=== PATIENT | male | born 1955 | race Caucasian/White ===

== ENCOUNTER 2019-08-28 13:45 | Inpatient (IN) | payer OTHER, SELFPAY ==
[2019-08-28] VITALS (10 sets, daily range): BP systolic 121–157; BP diastolic 70–85; PULSE 80–119; RESP 17–30; TEMP 36.2–38.3; O2SAT 86–97; BMI 36.4
--- NOTE | ~2019-08-28 | XR_ITS ---
XR hip LT 2V w AP pelvis DATE: 08/29/2019 15:47 INDICATION: Left hip pain. No injury. TECHNIQUE: AP pelvis. AP and lateral views of left hip. COMPARISON: None FINDINGS: No pelvic fracture or bone destruction is detected. The pubic symphysis and sacroiliac join ts are intact. Hip joint spaces are relatively preserved. No fracture, dislocation, avascular necrosi s or bone destruction of the left hip. IMPRESSION: No pelvic or left hip fracture or dislocation rather significant abnormality Reviewed, dictated and finalized at location B. IMPRESSION: No pelvic or left hip fracture or dislocation rather significant ab normality
--- NOTE | ~2019-08-28 | XR_ITS ---
EXAMINATION: XR chest 1V portable DATE: 08/28/2019 14:38 INDICATION: Shortness of breath. TECHNIQUE: A single frontal view of the chest was obtained. COMPARISON: None. FINDINGS: The chest demonstrates clear lungs without pneumonia, pleural effusion, or pneumothorax. Th e heart size is normal. There are prominent paracardial fat pads. IMPRESSION: 1. No acute cardiopulmonary disease. Reviewed, dictated and finalized at location A.
--- NOTE | ~2019-08-28 | XR_ITS ---
EXAMINATION: XR chest 2V EXAM DATE: 08/30/2019 19:04 INDICATION: Cough. Bronchitis. TECHNIQUE: Frontal and lateral projections of the chest obtained and reviewed. Comparison is made to prior examination from 08/28/2019. FINDINGS: Minimal right basilar linear opacity most consistent with atelectasis. Right midlung zone g ranuloma. The lungs are otherwise clear. There are no pleural effusions. The cardiomediastinal silh ouette is within normal limits. There is no pneumothorax suspected. The bones and soft tissues are unremarkable. IMPRESSION: Minimal right basilar linear opacity likely subsegmental atelectasis. Reviewed, dictated and finalized at location A. IMPRESSION: Minimal right basilar linear opacity likely subsegmental atelectasi s.
--- NOTE | 2019-08-28 13:47 | ECG_ITS ---
Measurements Intervals [place] Rate: 119 P: 80 LA: 128 QRS: 95 QRSD: 83 T: 59 QT: 297 QTc: 418 Interpretive Statements SINUS TACHYCARDIA FREQUENT ATRIAL PREMATURE COMPLEXES RIGHT AXIS DEVIATION BASELINE ARTIFACT- V4-V6 ABNORMAL ECG Electronically Signed On 08-28-2019 14:51:16 CDT by Andres Caro D.O.
--- NOTE | 2019-08-28 14:15 | ED.SOB ---
HPI - SOB/Dyspnea General Source: patient Mode of arrival: ambulatory Limitations: no limitations History of Present Illness HPI Narrative: A 64 y/o male pt with a PMHx of COPD, presents to the ED, with c/o worsening SOB since Thursday (2 days ago). Pt notes having wheezes, fatigue, sore throat and nausea, but denies vomiting or fever. He states his SOB worsens with movement. Pt states that he is on O2 x 2L via NC at all times. He notes having a smoking hx and states he smokes an estimate of a 1/2 pack of cigarettes daily. Pt notes taking Aspirin, but denies taking Tylenol. MD elicited complaint: shortness of breath Pertinent past history: COPD Onset (ago): day(s) (2) Timing: progressively worsening Exacerbating factors: movement Known history of: COPD Associated symptoms: wheezing and other (sore throat, fatigue, nausea) Treatment prior to arrival: aspirin Related Data Home Medications Medication Instructions Recorded Confirmed albuterol sulfate 2 puff INHALATION TID PRN 08/28/19 08/28/19 aspirin 325 mg PO DAILY 08/28/19 08/28/19 beclomethasone dipropionate [Qvar 2 inh INHALATION DAILY 08/28/19 08/28/19 RediHaler] furosemide 40 mg PO DAILY 08/28/19 08/28/19 potassium chloride 20 meq PO DAILY 08/28/19 08/28/19 Allergies Allergy/AdvReac Type Severity Reaction Status Date / Time No Known Allergies Allergy Verified 08/28/19 17:36 Review of Systems Review of Systems: All systems reviewed & are unremarkable except as noted in HPI and below Constitutional: Constitutional: Reports fatigue and Denies fever(s) ENT: Reports sore throat Respiratory: Respiratory: Reports dyspnea and Reports wheezing Gastrointestinal: Gastrointestinal: Reports nausea and Denies vomiting PMF Past Medical History Medical History (Updated 08/28/19 @ 20:08 by Je Rushing DO) CAD (coronary artery disease) COPD (chronic obstructive pulmonary disease) Medical history unknown Polycythemia vera Surgical History Surgical History (Updated 08/28/19 @ 19:59 by Kin Singh MD) History of coronary artery stent placement Surgical history unknown Family History Family History Other No problems noted. Mother Cardiovascular disease Father Stomach cancer Sibling Renal failure Diabetes mellitus Ovarian cancer Social History Social History Smoking packs per day: 0.5 Smoking cigarettes per day: 10.0 Smoking status: Current every day smoker Alcohol intake: current Drinks per week: 1 Substance use: never Gender identity (if verbalized by the patient): Male Spiritual care concerns: No Agree to blood products: Yes Exam Narrative: Exam Narrative: APPEARANCE: No acute distress, nontoxic, resting in bed EYES: EOMI HEENT: Normocephalic, atraumatic, OMM RESPIRATORY: No respiratory distress decreased breath sounds in the bilateral lower lung ryan, no wheezing, no rhonchi CARDIOVASCULAR: Regular rate and rhythm without murmurs rubs or gallops. ABDOMINAL: Soft, nontender, nondistended, no rebound or guarding MUSCULOSKELETAl: Moves all extremities. No clubbing, cyanosis or edema. NEURO: Awake and alert x 3. Following commands, speech normal, no focal deficits SKIN:: Warm, dry. No rashes lesions or abrasions PSYCHIATRIC: Normal affect/mood, Course Consultations Consultation #1: Discussed case with Antonia Wallace NP for the hospitalist, Dr. Pérez. Accepts admission and recommends starting pt on Levaquin and Solu-Medrol.. At this time will avoid nebulizers. We discussed the patient's current PCO2 and with patient's serum bicarb being 39 as well as the patient currently being awake and alert x3 it is felt that the patient does not require BiPAP at this time will continue on current nasal cannula is trying to limit BiPAP at this current time secondary to current Covid pandemic Discussed with patient and
[2019-08-28 14:23] LABS: Basophils Absolute Auto 0.1 K/mm3 (0.0-0.1); Basophils Percent Auto 0.5 % (0.2-1.2); Eosinophils Absolute Auto 0.1 K/mm3 (0-0.3); Eosinophils Percent Auto 0.6 % (0-4.4); Hematocrit 53.8 % (42.0-52.0); Hemoglobin 16.7 g/dL (14.0-18.0); Immature Granulocyte Absolute 0.05 K/mm3 (0.00-0.031); Immature Granulocyte Percent A 0.5 % (0-0.5); Lymphocytes Absolute Auto 1.75 K/mm3 (0.9-3.2); Mean Corpuscular Hemoglobin 30.5 pg (26-34); Mean Corpuscular Volume 98.2 fl (80-100); Mean Platelet Volume 10.4 fl (7.4-10.4); Monocytes Absolute Auto 0.9 K/mm3 (0.1-0.6); Monocytes Percent Auto 9.2 % (2.6-8.5); Neutrophils Absolute Auto 6.9 K/mm3 (1.3-6.7); Neutrophils Percent Auto 71.2 % (45.5-73.1); Platelet Count Result 242 k/mm3 (150-375); Red Blood Count 5.48 M/mm3 (4.6-6.20); Red Cell Distribution Width 12.9 % (11.5-14.5); White Blood Count 9.7 K/mm3 (4.5-10.0)
[2019-08-28 14:30] LABS: Alveolar/Arterial O2 Gradient 43.9 mmHg; Base Excess ABG 7.5 mEq/l (+/-2.0); Fractional Inspired Oxygen 28 %; HCO3 ABG 37.4 mEq/l (22.0-26.0); Oxygen Content ABG 21.3 %vol (16.0-22.0); Oxygen Saturation ABG 90.6 % (95.0-100.0); Oxyhemoglobin 90.3 % THb (90.0-100.0); PO2 ABG 66.5 mmHg (80.0-100.0); PO2 FiO2 Ratio Arterial Blood 2.38 %; Total Hemoglobin 16.8 g/dL (12.0-18.0); pH ABG 7.312 (7.350-7.450)
[2019-08-28 14:31] LABS: Device NASAL CANNULA; Modified Allen's Test Pass; PCO2 ABG 75.6 mmHg (35.0-45.0); Site Drawn RIGHT RADIAL
[2019-08-28 14:32] LABS: INR 1.1; Prothrombin Time 13.4 Seconds (11.1-14.7)
[2019-08-28 14:33] LABS: Partial Thromboplastin Time 27.4 SECONDS (22.3-36.8)
[2019-08-28 14:34] LABS: Lactic Acid Reflex 1.5 mmol/L (0.7-2.1)
[2019-08-28 14:34] LABS: Blood Urea Nitrogen 12 mg/dL (9-20); Calcium 8.9 mg/dL (8.4-10.2); Carbon Dioxide 39 mmol/L (22-30); Chloride 95 mmol/L (98-107); Estimated CRCL calculation 100 ml/min; Estimated Glomerular Filt Rate > 60; Glucose 169 mg/dL (75-110); Potassium 4.3 mmol/L (3.4-5.0); Sodium 138 mmol/L (137-145)
[2019-08-28] MEDS: SODIUM CHLORIDE 0.9% IV 1,000 ML 999 ML IV CONT (14:47)
[2019-08-28 14:54] LABS: Alanine Aminotransferase 23 U/L (4-50); Albumin Level 4.2 g/dL (3.5-5.1); Alkaline Phosphatase 112 U/L (38-126); Aspartate Amino Transferase 21 U/L (17-59); Bilirubin,Total 0.7 mg/dL (0.2-1.3)
[2019-08-28 14:55] LABS: NT Pro B Type Natriuretic Pept 37 PG/ML (5-100); Troponin I < 0.012 ng/mL (0.000-0.034)
[2019-08-28] MEDS: methylPREDNISolone SOD SUCC 125 MG VIAL IV PUSH (15:47)
--- NOTE | 2019-08-28 16:58 | PC.NURSE ---
This patient, Ramo Dunaway, was admitted to 2 Medical Room 251-. Patient/family oriented to hospital policies and general routines including ID bracelet, bed and alarms, visiting hours, pain management, procedures, bathroom and other care routines, personal items, smoking policy, room service/diet, and visiting hours. Valuables list has been completed. Information on how to activate the Rapid Response Team has been discussed. Patient/Family are encouraged to report perceived risks to care and to ask questions if they do not understand what they are told or what they should do.
[2019-08-28] MEDS: SODIUM CHLORIDE 0.9% IV 1,000 ML 100 ML IV CONT (18:04)
--- NOTE | 2019-08-28 19:54 | PM.IMHP ---
H&P: HPI History of Present Illness Chief complaint: Shortness of breath Narrative: This is a 64 year old obese male with known COPD, polycythemia vera, CAD+ and chronic tobacco user who presented to the hospital with a complaint of severe shortness of breath for the past 3 days, productive cough, and generalized weakness. He relates that he has had ongoing worsening shortness of breath for the past 3 weeks but now he is severely short of breath even with minimal exertion. Associated symptoms include wheezing. He denies any fever or chills although he did have a fever today in the ER. He also denies any chest pain, palpitations, sore throat, hyposmia, worsening LE swelling, abdominal pain, nausea, vomiting, diarrhea, or rectal bleeding. The patient is known to smoke between 14 - 2 ppd and continues to smoke. He is known to be on 2L of home oxygen at all times and tells me he often bumps it up to 4L. He has been taking his home medications as prescribed. His last course of antibiotics was 1 year ago. The patient was evaluated in the ER today and found to have hypercapnic respiratory failure w/ a pH of 7.312 and a pCO2 of 75.6. The patient was admitted to the medical floor for continued care and given IV antibiotics and bronchodilators. Review of Systems Review of Systems: All systems reviewed & are unremarkable except as noted in HPI and below PMFSH Past Medical History Medical History CAD (coronary artery disease) COPD (chronic obstructive pulmonary disease) Medical history unknown Polycythemia vera Surgical History Surgical History History of coronary artery stent placement Surgical history unknown Family History Family History Other No problems noted. Mother Cardiovascular disease Father Stomach cancer Sibling Renal failure Diabetes mellitus Ovarian cancer Social History Social History Smoking packs per day: 0.5 Smoking cigarettes per day: 10.0 Smoking status: Current every day smoker Alcohol intake: current Drinks per week: 1 Substance use: never Gender identity (if verbalized by the patient): Male Spiritual care concerns: No Agree to blood products: Yes Meds Home Medications and Allergies Home Medications Medication Instructions Recorded Confirmed Type albuterol sulfate 2 puff INHALATION TID PRN 08/28/19 08/28/19 History aspirin 325 mg PO DAILY 08/28/19 08/28/19 History beclomethasone dipropionate [Qvar 2 inh INHALATION DAILY 08/28/19 08/28/19 History RediHaler] furosemide 40 mg PO DAILY 08/28/19 08/28/19 History potassium chloride 20 meq PO DAILY 08/28/19 08/28/19 History Allergies Allergy/AdvReac Type Severity Reaction Status Date / Time No Known Allergies Allergy Verified 08/28/19 17:36 Vital Signs Vital Signs - 24 hr 08/28/19 14:05 08/28/19 14:10 08/28/19 15:19 Temperature 38.3 C H Pulse Rate 119 H 116 H 99 Respiratory Rate 24 H 30 H 26 H Blood Pressure 157/85 H 157/85 H 121/77 Pulse Oximetry 86 L 92 94 08/28/19 16:30 08/28/19 18:41 08/28/19 19:26 Temperature 36.3 C L Pulse Rate 95 94 Respiratory Rate 17 20 Blood Pressure 128/84 Pulse Oximetry 97 93 94 Exam Const: General: cooperative, alert and awake; No well groomed Nutritional Appearance: obese morbidly obese Orientation/consciousness: patient oriented x3 HENMT: Head: normal to inspection General nose exam: Normal external nose present Face and sinus: normal facial exam Mouth: Yes Normal oral and palatal mucosa present and Yes oropharynx normal Eyes: Pupils: Equal, round and reactive pupils present EOM: EOMs intact bilaterally Neck: Neck: supple and no JVD Thyroid: thyroid normal Lymphatic: lymphadenopathy not noted Resp: Effort & Inspection: p
[2019-08-28 20:55] LABS: Alveolar/Arterial O2 Gradient 55.9 mmHg; Fractional Inspired Oxygen 33 %; Oxygen Content ABG 21.4 %vol (16.0-22.0); Oxygen Saturation ABG 93.6 % (95.0-100.0); Oxyhemoglobin 92.8 % THb (90.0-100.0); PO2 ABG 81.3 mmHg (80.0-100.0); PO2 FiO2 Ratio Arterial Blood 2.46 %; Total Hemoglobin 16.4 g/dL (12.0-18.0)
[2019-08-28 20:58] LABS: Modified Allen's Test Pass; Site Drawn RIGHT RADIAL
[2019-08-28 20:59] LABS: Device NASAL CANNULA
[2019-08-28] MEDS: methylPREDNISolone SOD SUCC 125 MG VIAL 60 MG IV PUSH (22:08)
--- NOTE | 2019-08-28 22:37 | PC.NURSE ---
This patient, Ramo Dunaway, was received from [[id number] ] on 08/28/19 at 2200. Personal belongings list checked and signed. Patient/family oriented to unit policies and routines
[2019-08-28 23:45] LABS: Alveolar/Arterial O2 Gradient 12.2 mmHg; Base Excess ABG 6.1 mEq/l (+/-2.0); Fractional Inspired Oxygen 28 %; HCO3 ABG 37.4 mEq/l (22.0-26.0); Oxygen Content ABG 21.8 %vol (16.0-22.0); Oxygen Saturation ABG 94.3 % (95.0-100.0); PO2 FiO2 Ratio Arterial Blood 3.04 %; Total Hemoglobin 16.5 g/dL (12.0-18.0)
[2019-08-28 23:50] LABS: pH ABG 7.252 (7.350-7.450)
[2019-08-28 23:51] LABS: Device NASAL CANNULA; Modified Allen's Test Pass; PCO2 ABG 86.8 mmHg (35.0-45.0); Site Drawn LEFT RADIAL
[2019-08-29] VITALS (15 sets, daily range): BP systolic 116–155; BP diastolic 70–97; PULSE 79–105; RESP 18–24; TEMP 35.9–36.7; O2SAT 88–97
[2019-08-29] MEDS: SODIUM CHLORIDE 0.9% IV 1,000 ML 100 ML IV CONT ×3 (04:16→20:05)
[2019-08-29] MEDS: methylPREDNISolone SOD SUCC 125 MG VIAL 60 MG IV PUSH ×2 (04:17→08:08)
[2019-08-29 04:55] LABS: Basophils Percent Auto 0.2 % (0.2-1.2); Hematocrit 53.4 % (42.0-52.0); Hemoglobin 16.3 g/dL (14.0-18.0); Immature Granulocyte Percent A 1.2 % (0-0.5); Lymphocytes Absolute Auto 0.98 K/mm3 (0.9-3.2); Lymphocytes Percent Auto 11.4 % (18.3-44.2); Mean Corpuscular HGB Conc 30.5 g/dl (32-36); Mean Corpuscular Hemoglobin 30.6 pg (26-34); Mean Corpuscular Volume 100.2 fl (80-100); Mean Platelet Volume 10.3 fl (7.4-10.4); Monocytes Absolute Auto 0.3 K/mm3 (0.1-0.6); Monocytes Percent Auto 2.9 % (2.6-8.5); Neutrophils Absolute Auto 7.3 K/mm3 (1.3-6.7); Neutrophils Percent Auto 84.3 % (45.5-73.1); Platelet Count Result 243 k/mm3 (150-375); Red Blood Count 5.33 M/mm3 (4.6-6.20); Red Cell Distribution Width 12.8 % (11.5-14.5); White Blood Count 8.6 K/mm3 (4.5-10.0)
[2019-08-29 05:15] LABS: Blood Urea Nitrogen 12 mg/dL (9-20); Calcium 8.9 mg/dL (8.4-10.2); Carbon Dioxide > 40 mmol/L (22-30); Chloride 97 mmol/L (98-107); Estimated CRCL calculation 98 ml/min; Estimated Glomerular Filt Rate > 60; Glucose 275 mg/dL (75-110); Magnesium 2.3 mg/dL (1.6-2.3); Potassium 4.5 mmol/L (3.4-5.0); Sodium 138 mmol/L (137-145)
[2019-08-29] MEDS: ASPIRIN 325 MG TABLET PO (08:08)
[2019-08-29] MEDS: FUROSEMIDE 40 MG TABLET PO (08:08)
[2019-08-29] MEDS: POTASSIUM CHLORIDE 20 MEQ TABLET.ER PO (08:08)
[2019-08-29] MEDS: DOXYCYCLINE HYCLATE 100 MG TABLET PO ×2 (08:08→20:05)
--- NOTE | 2019-08-29 13:50 | PM.IMPN ---
Subjective Date/time seen: 08/29/19 13:50 Interval history: 64 year old obese male with known COPD, polycythemia vera, CAD+ and chronic tobacco user who presented to the hospital with a complaint of severe shortness of breath for the past 3 days, productive cough, and generalized weakness. Pt was on bipap last night presently on oxygen, mild cough, sob and wheeze. Pt has complaints of left hip pain unsure if he has a old fracture of his left hip. Pt gets pain when he raises from the chair. Review of Systems Review of Systems: All systems reviewed & are unremarkable except as noted in HPI and below Respiratory: Respiratory: Reports chest congestion, Reports cough, Reports dyspnea and Reports wheezing Musculoskeletal: Comments: left hip pain Exam Const: General: cooperative, alert, awake and in distress; No well groomed Nutritional Appearance: obese morbidly obese Orientation/consciousness: patient oriented x3 Other: On oxygen Resp: Auscultation: rhonchi and wheezes expiratory wheezes Cardio: Rate: tachycardic Rhythm: regular rhythm Heart sounds: no murmurs GI: Auscultation: normal bowel sounds Neuro: General: patient oriented x3 Cranial nerves: Yes CN's II-XII intact bilaterally and Yes Equal, round and reactive pupils present Speech: normal speech Motor exam (neuro): 5/5 motor strength present throughout Sensory Exam: normal sensation Extrem: General: normal to inspection Other: Left hip pain near greater trochanter Objective Data Vital Signs Vital Signs: Vital Signs - 24 hr 08/28/19 14:05 08/28/19 14:10 08/28/19 15:19 Temperature 38.3 C H Pulse Rate 119 H 116 H 99 Respiratory Rate 24 H 30 H 26 H Blood Pressure 157/85 H 157/85 H 121/77 Pulse Oximetry 86 L 92 94 08/28/19 16:30 08/28/19 18:41 08/28/19 19:26 Temperature 36.3 C L Pulse Rate 95 94 Respiratory Rate 17 20 Blood Pressure 128/84 Pulse Oximetry 97 93 94 08/28/19 21:05 08/28/19 21:10 08/28/19 22:00 Temperature 36.2 C L 36.6 C Pulse Rate 104 H 92 92 Respiratory Rate 20 22 H 20 Blood Pressure 146/81 H 129/71 Pulse Oximetry 90 92 93 08/28/19 23:09 08/29/19 00:03 08/29/19 00:59 Temperature 36.6 C Pulse Rate 80 90 79 Respiratory Rate 20 20 20 Blood Pressure 130/70 Pulse Oximetry 92 92 88 L 08/29/19 02:00 08/29/19 04:00 08/29/19 05:31 Temperature 36.7 C Pulse Rate 93 94 92 Respiratory Rate 20 Blood Pressure 116/76 Pulse Oximetry 94 08/29/19 07:56 08/29/19 08:00 08/29/19 09:47 Temperature 36.4 C L Pulse Rate 84 85 97 Respiratory Rate 22 H Blood Pressure 136/82 Pulse Oximetry 91 08/29/19 11:14 08/29/19 12:00 Temperature 36.7 C Pulse Rate 97 94 Respiratory Rate 22 H 20 Blood Pressure 155/95 H Pulse Oximetry 93 97 Intake/Output Intake/Output: Intake & Output 08/26/19 08/27/19 08/28/19 08/29/19 23:59 23:59 23:59 23:59 Intake Total 1490 2360 Output Total 500 700 Balance 990 1660 Meds/Results Medications: Active Medications Generic Name Dose Route Start Last Admin Trade Name Freq PRN Reason Stop Dose Admin Acetaminophen 650 mg 08/28/19 19:52 Tylenol Tablet PO Q4H PRN Mild Pain (1-3) or Fever Aspirin 325 mg 08/29/19 09:00 08/29/19 08:08 Aspirin PO 325 mg DAILY DONNY Administration Doxycycline Hyclate 100 mg 08/29/19 09:00 08/29/19 08:08 Vibramycin Tab PO 100 mg Q12HR DONNY Administration Furosemide 40 mg 08/29/19 09:00 08/29/19 08:08 Lasix Tablet PO 40 mg DAILY DONNY Administration Sodium Chloride 1,000 mls @ 100 mls/hr 08/28/19 16:05 08/29/19 11:28 Normal Saline Iv IV CONT 100 mls/hr .Q10H DONNY Administration Methylprednisolone Sodium Succinate 60 mg 08/28/19 22:00 08/29/19 08:08 Solu-Medrol IV PUSH 60 mg Q6H DONNY Administration Potassium Chloride 20 meq 08/29/19 09:00 08/29/19 08:08 Kcl Tablet PO 20 meq DAILY DONNY Administration Radiology Results: ITS Impres
[2019-08-29 15:36] LABS: Hemoglobin A1C 7.5 % (<5.7)
[2019-08-29] MEDS: methylPREDNISolone SOD SUCC 40 MG VIAL IV PUSH ×2 (17:01→23:57)
--- NOTE | 2019-08-29 18:30 | PC.NURSE ---
Transferred to [facility], report given to NEVILLE Calderon. Patient moved at 1810.
[2019-08-29] MEDS: ACETAMINOPHEN 325 MG TABLET 650 MG PO (18:47)
[2019-08-30 05:31] LABS: Hematocrit 50.7 % (42.0-52.0); Hemoglobin 15.9 g/dL (14.0-18.0); Mean Corpuscular HGB Conc 31.4 g/dl (32-36); Mean Corpuscular Hemoglobin 30.3 pg (26-34); Mean Corpuscular Volume 96.8 fl (80-100); Platelet Count Result 267 k/mm3 (150-375); Red Blood Count 5.24 M/mm3 (4.6-6.20); Red Cell Distribution Width 12.5 % (11.5-14.5); White Blood Count 14.4 K/mm3 (4.5-10.0)
[2019-08-30 06:16] VITALS: BP 133/85; PULSE 84; RESP 16; TEMP 36.3; O2SAT 94
[2019-08-30 06:16] LABS: Blood Urea Nitrogen 15 mg/dL (9-20); Calcium 8.7 mg/dL (8.4-10.2); Carbon Dioxide 36 mmol/L (22-30); Chloride 97 mmol/L (98-107); Estimated CRCL calculation 128 ml/min; Estimated Glomerular Filt Rate > 60; Glucose 277 mg/dL (75-110); Potassium 4.7 mmol/L (3.4-5.0); Sodium 138 mmol/L (137-145)
[2019-08-30] MEDS: methylPREDNISolone SOD SUCC 40 MG VIAL IV PUSH ×4 (06:29→23:56)
[2019-08-30] MEDS: SODIUM CHLORIDE 0.9% IV 1,000 ML 100 ML IV CONT (06:30)
[2019-08-30] MEDS: IBUPROFEN 400 MG TABLET PO (06:52)
[2019-08-30] MEDS: ASPIRIN 325 MG TABLET PO (08:54)
[2019-08-30] MEDS: POTASSIUM CHLORIDE 20 MEQ TABLET.ER PO (08:54)
[2019-08-30] MEDS: DOXYCYCLINE HYCLATE 100 MG TABLET PO ×2 (08:54→20:03)
[2019-08-30] MEDS: FUROSEMIDE 40 MG TABLET PO (08:54)
[2019-08-30] MEDS: ALBUTEROL SULFATE (*SP) AEROSOL 1 PUFF 2 PUFF INHALATION ×4 (09:30→19:39)
[2019-08-30 14:00] VITALS: BP 105/52; PULSE 86; RESP 20; TEMP 36.8; O2SAT 98
--- NOTE | 2019-08-30 16:10 | PM.IMPN ---
Progress Note: A&P Assessment and Plan (1) Sepsis: Qualifiers: Acute respiratory failure type: with hypercapnia Sepsis acute organ dysfunction status: with acute organ dysfunction Sepsis type: sepsis due to unspecified organism Severe sepsis acute organ dysfunction type: acute respiratory failure Severe sepsis shock status: without septic shock Qualified Code(s): A41.9 - Sepsis, unspecified organism; R65.20 - Severe sepsis without septic shock; J96.02 - Acute respiratory failure with hypercapnia Code(s): A41.9 - Sepsis, unspecified organism Status: Acute Assessment and Plan: Present on admission with fever and tachycardia. Probably related to the acute bronchitis. Sx better. Continue to monitor. (2) Acute hypercapnic respiratory failure: Code(s): J96.02 - Acute respiratory failure with hypercapnia Status: Acute Assessment and Plan: Patietn with hypercapnia on admission treated with BiPAP. Did not wear BiPAP last night per patient. Encouraged compliance. Has CPAP at home but may need BiPAP at home. Repeat ABG in the morning. (3) COPD exacerbation: Code(s): J44.1 - Chronic obstructive pulmonary disease with (acute) exacerbation Status: Acute Assessment and Plan: Still wheezing. BCx NGTD. Down to 2L NC. Continue bronchodilators, abx and steroid therapy. (4) Acute bronchitis: Qualifiers: Bronchitis organism: unspecified organism Qualified Code(s): J20.9 - Acute bronchitis, unspecified Code(s): J20.9 - Acute bronchitis, unspecified Status: Acute Assessment and Plan: Patient with fever and productive cough. Fever resolved. WBC elevated today but related to the steroids. CXR clear. Repeat CXR. Continue doxycycline. (5) Polycythemia vera: Code(s): D45 - Polycythemia vera Status: Chronic Assessment and Plan: Stable. Hgb 16. (6) CAD (coronary artery disease): Qualifiers: Associated angina: without angina Coronary Disease-Associated Artery/Lesion type: [place] artery [place] vs. transplanted heart: [place] heart Qualified Code(s): I25.10 - Atherosclerotic heart disease of [place] coronary artery without angina pectoris Code(s): I25.10 - Atherosclerotic heart disease of [place] coronary artery without angina pectoris Status: Chronic Assessment and Plan: Stable. Pedal edema noted. On Lasix at home. Monitor for chest pain. Continue ASA therapy. Check Echo. (7) Tobacco dependence: Code(s): F17.200 - Nicotine dependence, unspecified, uncomplicated Status: Chronic Assessment and Plan: Patient has been counseled on the benefits of smoking cessation. Subjective Date/time seen: 08/30/19 16:10 Interval history: 64yo male with known COPD, polycythemia vera, CAD and chronic tobacco use here for COPD exacerbation. Assuming care. Chart reviewed. Patient did not wear the BiPAP last night. Does have CPAP at home. He also is on chronic oxygen at home. Feels much better today. He denies shortness of breath. Still with some dyspnea on exertion walking to the bathroom. No chest pain. No nausea or vomiting. No diarrhea. still with productive cough. Sputum is greenish color. No hemoptysis. Patient has had pedal edema developed over the past year. Exam Narrative: Exam Narrative: AF 133/85 84 Gen - NARD sitting up in a chair Chest -diffuse end expiratory wheezes throughout. Normal respiratory rate. No conversational dyspnea. CV - RRR S1/S2 Abd - Soft, NT/ND, Positive BS Ext -trace pedal edema. Psych - Nml mood and affect Skin -dry scaly skin the bilateral lower extremities. Objective Data Vital Signs Vital Signs: Vital Signs - 24 hr 08/29/19 18:50 08/29/19 21:30 08/30/19 06:16 Temperature 97.5 F L 96.7 F L 97.3 F L Pulse Rate 92 88 84 Respiratory Rate 20 18 16 Blood Pressure 134/70 133/97 H 133/85 Pulse
[2019-08-30 17:12] LABS: Glucose Point of Care 406 (65-105)
[2019-08-30] MEDS: INSULIN ASPART (*BKC) 100 UNITS/ML SUB-Q (17:14)
[2019-08-30] MEDS: EUCERIN CREAM 120 GM JAR 1 APPLIC TOPICAL (18:40)
[2019-08-30 19:43] VITALS: PULSE 79; RESP 18; O2SAT 95
[2019-08-30] MEDS: FAMOTIDINE 20 MG TABLET PO (20:03)
[2019-08-30 20:52] LABS: Glucose Point of Care 345 (65-105)
[2019-08-30] MEDS: INSULIN GLARGINE (*BKC) 100 UNITS/ML 10 UNITS SUB-Q (20:56)
[2019-08-30 22:17] VITALS: BP 151/78; PULSE 94; RESP 18; TEMP 36.7; O2SAT 94
--- NOTE | 2019-08-31 | ECHO_ITS ---
Patient Info Name: Ramo Dunaway Age: 64 years : 1955 Gender: Male Ht: 68 in Wt: 240 lbs BSA: 2.33 m2 HR: 82 bpm BP: 145 / 92 mmHg Heart Rhythm: Sinus Rhythm Technical Quality: Good Exam Date: 08/31/2019 9:20 AM Exam Location: [facility] Pulmonary Patient Status: Inpatient Admit Date: 08/30/2019 Staff Ordering Physician: Yuniel Duff MD Bartender Manager: Kp Pedro RDCS Attending Provider: Yuniel Duff MD Exam Type: CA echo doppler color flow Study Info Indications R60.0 - Localized edema Complete two-dimensional, color flow and Doppler transthoracic echocardiogram is performed. Strain analysis performed. History/Risk Factors COPD exacerbation; pedal edema, SOB, DM, sepsis, CAD. Summary 1. Normal global left ventricular systolic function with no focal wall motion abnormalities. Measured ejection fraction 58%, visually 60-65%. Normal diastolic function. Normal size and thickness. 2. Borderline right ventricular enlargement. 3. Mild left atrial enlargement. 4. Mild mitral regurgitation. 5. Mild pulmonary hypertension, RVSP 49 mmHg. 6. Dilated inferior vena cava with decreased respiratory collapse consistent with elevated right-sided pressures. 7. Normal sinus rhythm. Left Ventricle Left ventricular chamber dimension is normal. Left ventricular systolic function is normal, estimated at 60-65%. There is no increased left ventricular wall thickness. Left ventricular septal wall motion is normal. The left ventricular diastolic function is normal. Global longitudinal strain is normal at 19 %. Right Ventricle Right ventricular chamber dimension is mildly enlarged. Right ventricular systolic function is normal. Left Atria Left atrial chamber dimension is normal. Right Atria Right atrial chamber dimension is normal. Aortic Valve The aortic valve is trileaflet. There is no aortic valve sclerosis. There is no aortic valve stenosis. There is no aortic valve regurgitation. Pulmonic Valve The pulmonic valve is normal. There is no pulmonic valve stenosis. There is no pulmonic regurgitation. Mitral Valve The mitral valve has normal leaflets. There is no mitral valve stenosis. There is mild mitral valve regurgitation. Tricuspid Valve The tricuspid valve leaflets are normal. There is no significant tricuspid valve stenosis. There is trace tricuspid valve regurgitation. Moderate pulmonary hypertension, estimated pulmonary arterial systolic pressure is 49 mmHg. Pericardium/Pleural The pericardium appears normal. There is no pericardial effusion. Inferior Vena Cava Dilated inferior vena cava with <50% collapse upon inspiration consistent with Empty right atrial pressure, 10 mmHg. Aorta The aortic root size at the sinus of Valsalva is normal. The prox ascending aorta size is normal. Left Ventricular Outflow Tract Name Value Normal LVOT 2D LVOT Diameter 1.9 cm LVOT Doppler LVOT Peak Gradient 5 mmHg LVOT Mean Gradient 3 mmHg LVOT VTI 23 cm
[2019-08-31 05:52] VITALS: BP 145/92; PULSE 68; RESP 16; TEMP 35.8; O2SAT 92
[2019-08-31] MEDS: methylPREDNISolone SOD SUCC 40 MG VIAL IV PUSH (06:15)
[2019-08-31] MEDS: INSULIN ASPART (*BKC) 100 UNITS/ML SUB-Q (07:32)
[2019-08-31 08:21] LABS: Glucose Point of Care 282 (65-105)
[2019-08-31] MEDS: FAMOTIDINE 20 MG TABLET PO (08:24)
[2019-08-31] MEDS: ASPIRIN 325 MG TABLET PO (08:24)
[2019-08-31] MEDS: FUROSEMIDE 40 MG TABLET PO (08:24)
[2019-08-31] MEDS: DOXYCYCLINE HYCLATE 100 MG TABLET PO (08:24)
[2019-08-31 08:25] LABS: Alveolar/Arterial O2 Gradient 48.5 mmHg; Base Excess ABG 7.9 mEq/l (+/-2.0); Fractional Inspired Oxygen 28 %; Oxygen Saturation ABG 91.8 % (95.0-100.0); Oxyhemoglobin 92.2 % THb (90.0-100.0); PO2 ABG 68.1 mmHg (80.0-100.0); PO2 FiO2 Ratio Arterial Blood 2.43 %; Total Hemoglobin 16.2 g/dL (12.0-18.0); pH ABG 7.338 (7.350-7.450)
[2019-08-31] MEDS: EUCERIN CREAM 120 GM JAR 1 APPLIC TOPICAL (08:25)
[2019-08-31 08:28] LABS: Device NON-REBREATHER MASK; Modified Allen's Test Pass; PCO2 ABG 70.4 mmHg (35.0-45.0); Site Drawn RIGHT RADIAL
--- NOTE | 2019-08-31 08:33 | PCDIET ---
K 4.7 TODAY HELD AM DOSE. DR SNYDER AWARE
[2019-08-31 09:17] VITALS: O2SAT 92
--- NOTE | 2019-08-31 10:12 | PM.DS ---
DS: Diagnosis Admitting Diagnosis Admitting Diagnosis: Acute respiratory failure with hypercapnia Discharge Diagnosis (1) Sepsis: Qualifiers: Acute respiratory failure type: with hypercapnia Sepsis acute organ dysfunction status: with acute organ dysfunction Sepsis type: sepsis due to unspecified organism Severe sepsis acute organ dysfunction type: acute respiratory failure Severe sepsis shock status: without septic shock Qualified Code(s): A41.9 - Sepsis, unspecified organism; R65.20 - Severe sepsis without septic shock; J96.02 - Acute respiratory failure with hypercapnia Code(s): A41.9 - Sepsis, unspecified organism Status: Acute Assessment and Plan: Present on admission with fever and tachycardia. Probably related to the acute bronchitis. Sx better. (2) Acute hypercapnic respiratory failure: Code(s): J96.02 - Acute respiratory failure with hypercapnia Status: Acute Assessment and Plan: Patient with hypercapnia on admission treated with BiPAP. Patietn had clinical improvement. He has not been wearing the BiPAP at night. Encouraged compliance. ABG today showing pH 7.34, PCO2 70 and PO2 [address] Arias's office called and spoke with staff about ordereing a repeat sleep study. (3) COPD exacerbation: Code(s): J44.1 - Chronic obstructive pulmonary disease with (acute) exacerbation Status: Acute Assessment and Plan: Wheezing improved and patient states he feels back to baseline. BCx NGTD. He was treated with bronchodilators, abx and steroid therapy. Down to 2L NC which is his baseline. (4) Acute bronchitis: Qualifiers: Bronchitis organism: unspecified organism Qualified Code(s): J20.9 - Acute bronchitis, unspecified Code(s): J20.9 - Acute bronchitis, unspecified Status: Acute Assessment and Plan: Patient with fever and productive cough. Fever resolved. WBC normal on admission but became elevated felt related to the steroids. CXR clear on admission with repeat CXR with right base atelectasis. He was treated with doxycycline. Will repeat CXR in 1 month since he is a smoker. (5) EDDI (obstructive sleep apnea): Code(s): G47.33 - Obstructive sleep apnea (adult) (pediatric) Status: Acute Assessment and Plan: Not listed but suspect patient with EDDI. He wears CPAP at home. ABG improved but still with elevated PCO2 which appears to be chronic. Patient has not been wearing his BiPAP here and compliance was strongly encouraged. Talked with Resp Therapist. Patient would need a overnight apnea link to see if he qualifies for BiPAP or repeat sleep study as outpatient. Will plan for repeat outpatient sleep study that will need to be ordered by the PCP. Patient informed. Also called Dr Hutchison's office and left message with staff to order the repeat sleep study. (6) Chronic respiratory failure: Qualifiers: Respiratory failure complication: hypoxia and hypercapnia Qualified Code(s): J96.11 - Chronic respiratory failure with hypoxia; J96.12 - Chronic respiratory failure with hypercapnia Code(s): J96.10 - Chronic respiratory failure, unspecified whether with hypoxia or hypercapnia Status: Acute Assessment and Plan: As above. Patient wears 2 L O2 nasal cannula chronically and CPAP at night. (7) Polycythemia vera: Code(s): D45 - Polycythemia vera Status: Chronic Assessment and Plan: Stable. Hgb remained in the 16 range. (8) CAD (coronary artery disease): Qualifiers: Associated angina: without angina Coronary Disease-Associated Artery/Lesion type: cheesh-na artery [place] vs. transplanted heart: cheesh-na heart Qualified Code(s): I25.10 - Atherosclerotic heart disease of cheesh-na coronary artery without angina pectoris Code(s): I25.10 - Atherosclerotic heart disease of cheesh-na coronary artery without angina pectoris
--- NOTE | 2019-08-31 11:39 | PC.NURSE ---
DR SNYDER NOTIFIED OF GLUCOSE 428, NEW ORDERS RECEIVED.
[2019-08-31 11:46] LABS: Glucose Point of Care 428 (65-105)
[2019-08-31] MEDS: INSULIN ASPART (*BKC) 100 UNITS/ML 10 UNITS SUB-Q (11:48)
[2019-08-31] MEDS: predniSONE 20 MG TABLET 40 MG PO (11:50)
[2019-08-31] MEDS: ALBUTEROL SULFATE (*SP) AEROSOL 1 PUFF 2 PUFF INHALATION ×2 (12:30→16:15)
[2019-08-31 13:54] LABS: Glucose Point of Care 437 (65-105)
[2019-08-31 14:00] VITALS: BP 134/83; PULSE 80; RESP 17; TEMP 36.7; O2SAT 94
--- NOTE | 2019-08-31 14:01 | PC.NURSE ---
glucose 437, Dr Duff notified new orders received.
[2019-08-31] MEDS: INSULIN ASPART (*BKC) 100 UNITS/ML 6 UNITS SUB-Q (14:09)
[2019-08-31 16:20] LABS: Glucose Point of Care 325 (65-105)
[2019-08-31 16:20] LABS: Glucose Point of Care 342 (65-105)
[2019-08-31] MEDS: INSULIN ASPART (*BKC) 100 UNITS/ML 8 UNITS SUB-Q (16:43)
--- NOTE | 2019-09-07 13:34 | PC.NURSE ---
ECHO report shown to Dr. Duff and faxed to Dr. Hutchison. Blood cx is negative.
== END 2019-08-31 18:11 | disposition home or self-care (01) | DRG 720 ==
LOC: ANHED 15:52 → ANH2MED 16:28 → ANHIMU 22:26 → ANH2MED 08-29 18:22
PROVIDERS: Emergency Medicine; Family Medicine; Admitting Provider Family Medicine; Emergency Provider Emergency Medicine; PCP Internal Medicine; Visit Provider Internal Medicine
DX: A41.9 Sepsis, unspecified organism (principal); J96.02 Acute respiratory failure with hypercapnia; R65.20 Severe sepsis without septic shock; D45 Polycythemia vera; I25.10 Atherosclerotic heart disease of native coronary artery without angina pectoris; F17.210 Nicotine dependence, cigarettes, uncomplicated; Z99.81 Dependence on supplemental oxygen; Z95.5 Presence of coronary angioplasty implant and graft; J44.1 Chronic obstructive pulmonary disease with (acute) exacerbation; E66.01 Morbid (severe) obesity due to excess calories; Z68.36 Body mass index [BMI] 36.0-36.9, adult; Z79.82 Long term (current) use of aspirin; D72.829 Elevated white blood cell count, unspecified; T38.0X5A Adverse effect of glucocorticoids and synthetic analogues, initial encounter; J44.0 Chronic obstructive pulmonary disease with (acute) lower respiratory infection; J20.9 Acute bronchitis, unspecified; G47.33 Obstructive sleep apnea (adult) (pediatric)
CPT/HCPCS: 36415; 36600; 71045; 71046; 73502; 73521; 80048; 80076; 82805; 83036; 83605; 83735; 83880; 84484; 85025; 85027; 85610; 85730; 87040; 87804; 93005; 93306; 94002; 94003; 94640; 96361; 96365; 96374; 96375; 96376; 99285; A9270; G0378; G0379; J0131; J1815; J1956; J2920; J2930; J7030; J7512